=== PATIENT | male | born 2000 | race African-American/Black ===

== ENCOUNTER → 2023-05-14 | Emergency (ER) | payer OTHER ==
[~2023-05-14] VITALS: Ht 182.9 cm; Wt 79.4 kg
[2023-05-14 18:41] VITALS: BP_SYST 113; PULSE 58; RESP 16; TEMP 98.6; O2SAT 99
[2023-05-14 20:05] VITALS: BP_SYST 110; PULSE 62; RESP 18; TEMP 97.5; O2SAT 98
== END | disposition home or self-care (01) ==
LOC: SED 18:16
DX: S10.83XA Contusion of other specified part of neck, initial encounter (principal); S00.83XA Contusion of other part of head, initial encounter; V89.2XXA Person injured in unspecified motor-vehicle accident, traffic, initial encounter; Y93.89 Activity, other specified; Y92.89 Other specified places as the place of occurrence of the external cause; Y99.8 Other external cause status
CPT/HCPCS: 70450-TC; 72125-TC; 76376; 99284